=== PATIENT | female | born 1985 | race Caucasian/White ===

== ENCOUNTER 2018-04-11 14:02 | Inpatient (IN) | payer MEDICAID ==
[~2018-04-11] VITALS: Ht 165.1 cm; Wt 58.0 kg
[~2018-04-11 14:02] MED LIST: CITA20TA17 PO; RISP0.252 PO
[2018-04-11 15:05] VITALS: BP 119/69
[2018-04-11] MEDS ORDERED: LORazepam 2 MG TABLET PO PRN (15:15)
[2018-04-11] MEDS ORDERED: ZOLPIDEM TARTRATE 10 MG TABLET PO PRN (15:15)
[2018-04-11] MEDS ORDERED: HALOPERIDOL 5 MG TABLET PO PRN (15:15)
[2018-04-11] MEDS ORDERED: RISP.5 PO (16:02)
[2018-04-11 16:41] VITALS: BP 115/61
[2018-04-12 06:21] VITALS: BP 104/66
[2018-04-12 08:39] VITALS: BP 104/70
[2018-04-12] MEDS: CITALOPRAM HYDROBROMIDE 10 MG TABLET PO SCH (10:11)
[2018-04-12 16:04] VITALS: BP 108/65
[2018-04-13 06:06] VITALS: BP 101/68
[2018-04-13 08:06] VITALS: BP 102/64
[2018-04-13 08:08] LABS: APPEARANCE,URINE CLEAR (CLEAR); BILIRUBIN,URINE NEGATIVE (NEGATIVE); GLUCOSE, URINE (UA) NEGATIVE (NEGATIVE); KETONES,URINE NEGATIVE (NEGATIVE); LEUKOCYTE ESTERASE ,URINE NEGATIVE (NEGATIVE); NITRATE,URINE NEGATIVE (NEGATIVE); OCCULT BLOOD,URINE NEGATIVE (NEGATIVE); PH,URINE 8.5 (5.0-8.0); PROTEIN,URINE TRACE (NEGATIVE); UROBILINOGEN,URINE 0.2 mg/dL (<=1.0)
[2018-04-13 08:12] LABS: AMPHET/METH SCREEN,URINE NEGATIVE (NEGATIVE); BARBITURATE SCREEN, URINE NEGATIVE (NEGATIVE); BENZODIAZEPINES SCREEN,URINE NEGATIVE (NEGATIVE); CANNABINOID SCREEN,URINE NEGATIVE (NEGATIVE); COCAINE SCREEN,URINE NEGATIVE (NEGATIVE); METHADONE SCREEN, URINE NEGATIVE (NEGATIVE); OPIATE SCREEN,URINE NEGATIVE (NEGATIVE)
[2018-04-13 08:13] LABS: PHENCYCLIDINE SCREEN,URINE NEGATIVE (NEGATIVE)
[2018-04-13] MEDS: CITALOPRAM HYDROBROMIDE 10 MG TABLET PO SCH (08:42)
[2018-04-13 16:35] VITALS: BP 109/64
[2018-04-14 06:08] VITALS: BP 102/61
[2018-04-14] MEDS: CITALOPRAM HYDROBROMIDE 10 MG TABLET PO SCH (08:14)
[2018-04-14 08:19] VITALS: BP 107/67
[2018-04-14] MEDS: RisperiDONE 0.5 MG TABLET PO SCH ×2 (09:11→20:46)
[2018-04-14 16:39] VITALS: BP 120/64
[2018-04-15 01:04] VITALS: BP 125/69
[2018-04-15 08:01] VITALS: BP 100/60
[2018-04-15] MEDS: CITALOPRAM HYDROBROMIDE 10 MG TABLET PO SCH (09:56)
[2018-04-15] MEDS: RisperiDONE 0.5 MG TABLET PO SCH ×2 (09:56→20:25)
[2018-04-15 16:00] VITALS: BP 102/69
[2018-04-16 03:15] VITALS: BP 117/60
[2018-04-16 08:23] VITALS: BP 100/60
[2018-04-16] MEDS: CITALOPRAM HYDROBROMIDE 10 MG TABLET PO SCH (10:05)
[2018-04-16] MEDS: RisperiDONE 0.5 MG TABLET PO SCH ×2 (10:05→20:43)
[2018-04-16 16:40] VITALS: BP 112/67
[2018-04-17 04:06] VITALS: BP 103/77
[2018-04-17 08:19] VITALS: BP 109/60
[2018-04-17] MEDS: RisperiDONE 0.5 MG TABLET PO SCH ×2 (09:59→21:48)
[2018-04-17] MEDS: CITALOPRAM HYDROBROMIDE 10 MG TABLET PO SCH (09:59)
[2018-04-17 16:13] VITALS: BP 110/68
[2018-04-18 05:56] VITALS: BP 104/61
[2018-04-18 08:11] VITALS: BP 112/68
[2018-04-18] MEDS: RisperiDONE 0.5 MG TABLET PO SCH (09:06)
[2018-04-18] MEDS: CITALOPRAM HYDROBROMIDE 10 MG TABLET PO SCH (09:06)
[2018-04-18] MEDS ORDERED: CITA10TA68 PO (15:54)
[2018-04-18] MEDS ORDERED: RISP1 PO (15:54)
[2018-04-18 16:16] VITALS: BP 105/68
[2018-04-18] MEDS: RisperiDONE 1 MG TABLET PO SCH (20:24)
[2018-04-19 00:21] VITALS: BP 100/65
[2018-04-19 08:23] VITALS: BP 103/63
[2018-04-19] MEDS: CITALOPRAM HYDROBROMIDE 10 MG TABLET PO SCH (08:26)
[2018-04-19] MEDS: RisperiDONE 1 MG TABLET PO SCH ×2 (08:26→20:19)
[2018-04-19 16:39] VITALS: BP 106/59
[2018-04-20 06:50] VITALS: BP 120/82
[2018-04-20 08:11] VITALS: BP 107/63
[2018-04-20] MEDS: CITALOPRAM HYDROBROMIDE 10 MG TABLET PO SCH (09:21)
[2018-04-20] MEDS: RisperiDONE 1 MG TABLET PO SCH ×2 (09:21→20:03)
[2018-04-20 16:13] VITALS: BP 100/62
[2018-04-21 00:34] VITALS: BP 104/62
[2018-04-21 08:00] VITALS: BP 115/66
[2018-04-21] MEDS: RisperiDONE 1 MG TABLET PO SCH ×2 (08:14→20:13)
[2018-04-21] MEDS: CITALOPRAM HYDROBROMIDE 10 MG TABLET PO SCH (08:15)
[2018-04-21 16:25] VITALS: BP 109/68
[2018-04-22 06:16] VITALS: BP 110/72
[2018-04-22 08:09] VITALS: BP 100/60
[2018-04-22] MEDS: CITALOPRAM HYDROBROMIDE 10 MG TABLET PO SCH (08:16)
[2018-04-22] MEDS: RisperiDONE 1 MG TABLET PO SCH (09:06)
== END 2018-04-22 16:38 | disposition home or self-care (01) | DRG 751 ==
LOC: B2S 15:55
DX: F33.3 Major depressive disorder, recurrent, severe with psychotic symptoms (principal); R45.851 Suicidal ideations; Z91.5 Personal history of self-harm
CPT/HCPCS: 80307